=== PATIENT | female | born 1995 | race Caucasian/White ===

== ENCOUNTER 2019-08-04 20:44 | Emergency (ER) | payer OTHER ==
[~2019-08-04] VITALS: Ht 165.1 cm; Wt 68.0 kg
[2019-08-04 21:00] VITALS: BP 114/63
--- NOTE | 2019-08-04 21:00 | NUR ---
ER Nurse Note: Pt walked in c/o painful and frequent urination. Pt stated she had s/s for the past 3 days and pain is getting worse. Pt provided with urine sample. Will continue to monitor.
--- NOTE | 2019-08-04 21:10 | Emergency Room Report ---
History of Present Illness General Chief Complaint: Female Urogenital Problems Source: Patient Present Illness [facility] Patient is a 23-year-old female presents after increased dysuria and urinary frequency. She reports having onset of symptoms approximately 3 days prior to arrival. She denies any fever. She had not been vomiting. She denies any flank pain or hematuria. Previous history of urinary tract infections in the past. Denies any vaginal discharge. Allergies: Coded Allergies: AMOXICILLIN (Verified Allergy, Unknown, Rash, 08/04/19) Patient History Past Medical History: see triage record Last Menstrual Period: iireg 2-16 Now: No Reviewed Nursing Documentation: PMH: Agreed; PSxH: Agreed Nursing Documentation-PMH Past Medical History: No History, Except For Review of Systems All Other Systems: negative except mentioned in HPI Physical Exam Vital Signs Date Time Temp Pulse Resp B/P (MAP) Pulse Ox O2 Delivery O2 Flow Rate FiO2 08/04/19 20:50 98.2 81 20 114/63 (80) 98 Room Air Sp02 EP Interpretation: reviewed, normal General Appearance: normal inspection, well appearing, no apparent distress, alert, GCS 15 Head: atraumatic ENT: normal ENT inspection, hearing grossly normal, normal voice Neck: normal inspection, full range of motion, supple, no bony tend Respiratory: normal inspection, lungs clear, normal breath sounds, no respiratory distress, no retraction, no wheezing Cardiovascular #1: regular rate, rhythm, no edema Gastrointestinal: normal inspection, normal bowel sounds, non tender, soft, no guarding, no hernia Genitourinary: no CVA tenderness Musculoskeletal: normal inspection, back normal, normal range of motion Neurologic: alert, motor strength/tone normal, donor floor technician III-XII nml as tested, oriented x3, responsive, speech normal, normal inspection Psychiatric: normal inspection, judgement/insight normal, mood/affect normal Skin: no rash Medical Decision Making Diagnostic Impression: Primary Impression: Urinary tract infection ER Course Patient presented for dysuria. Differential diagnosis include was not limited to urinary tract infection, urethritis, among others. Patient has a benign exam and does not appear to require any imaging or laboratory testing at this time. Patient appears to have a simple urinary tract infection. She had been taking Azo with at home. Urinalysis showed some evidence of urinary infection. test was negative. Patient was given first dose of antibiotics in the emergency department.She will be given a prescription for oral antibiotics which advised to follow-up with her primary care physician for recheck. She advised to return if worse. The patient is advised to follow up with primary care doctor in 1-2 days. Patient is advised to return if any worsening condition or if any changes in status that are concerning. 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 Labs Test 08/04/19 20:59 Urine Color [place] Urine Appearance Cloudy Urine pH 6.5 (4.5-8.0) Urine Specific [place] 1.015 (1.005-1.035) Urine Protein Negative (NEGATIVE) Urine Glucose (UA) Negative (NEGATIVE) Urine Ketones Negative (NEGATIVE) Urine Blood 2+ (NEGATIVE) Urine Nitrite Positive (NEGATIVE) Urine Bilirubin 1+ (NEGATIVE) Urine Urobilinogen 4 MG/DL (0.0-1.0) Urine Leukocyte Esterase 2+ (NEGATIVE) Urine HCG, Qualitative Negative (NEGATIVE) Last Vital Signs Date Time Temp Pulse Resp B/P (MAP) Pulse Ox O2 Delivery O2 Flow Rate FiO2 08/04/19 20:50 98.2 81 20 114/63 (80) 98 Room Air Status: improved Disposition: HOME, SELF-CARE Condition: Stable Scripts Nitrofurantoin Monohyd/M-Cryst* (MACROBID 100 MG*) 100 Mg Capsule 100 MG ORAL EVERY 12 HOURS, #14 CAP Prov: Blaine Ho MD 08/04/19 Blaine Ho MD Aug 04, 2019 21:10
[2019-08-04 21:24] LABS: APPEARANCE,URINE CLOUDY; BILIRUBIN, URINE 1+ (NEGATIVE); GLUCOSE, URINE (UA) NEGATIVE (NEGATIVE); KETONES,URINE NEGATIVE (NEGATIVE); LEUKOCYTE ESTERASE ,URINE 2+ (NEGATIVE); NITRITE,URINE POSITIVE (NEGATIVE); PH,URINE 6.5 (4.5-8.0); PROTEIN,URINE NEGATIVE (NEGATIVE); UROBILINOGEN,URINE 4 MG/DL (0.0-1.0)
[2019-08-04 21:25] LABS: COLOR,URINE ORANGE
[2019-08-04] MEDS ORDERED: NITROFURANTOIN100 M2 ORAL (21:28)
[2019-08-04 21:40] VITALS: BP 114/63
--- NOTE | 2019-08-04 21:40 | NUR ---
ER DISCHARGE NOTE: Patient is cleared to be discharged per ERMD, pt is aox4, on room air, with stable vital signs. pt was given dc and prescription instructions, pt was able to verbalize understanding, pt id band removed without complications. pt is able to ambulate with steady gait. pt took all belongings.
== END 2019-08-04 21:40 | disposition home or self-care (01) ==
LOC: EMR 21:40
DX: N39.0 Urinary tract infection, site not specified (principal); Z88.1 Allergy status to other antibiotic agents
CPT/HCPCS: 81003; 81025; 87086; 87181; 99283